=== PATIENT | female | born 1950 | race Caucasian/White ===

== ENCOUNTER 2022-03-05 18:54 | Emergency (ER) | payer MEDICARE, MEDICAID ==
[2022-03-05] MEDS ORDERED: methylPREDNISolone Acetate 80 MG/ML SDV IM ONE (19:33)
== END 2022-03-05 20:00 | disposition home or self-care (01) ==
LOC: FB.ED 18:54
DX: M79.7 Fibromyalgia (principal); J44.9 Chronic obstructive pulmonary disease, unspecified; I25.10 Atherosclerotic heart disease of native coronary artery without angina pectoris; Z88.5 Allergy status to narcotic agent; Z88.6 Allergy status to analgesic agent
CPT/HCPCS: 96372; 99283; J1040